=== PATIENT | male | born 1990 | race Caucasian/White ===

== ENCOUNTER 2016-12-05 11:29 | Emergency (ER) | payer SELFPAY ==
[~2016-12-05 11:29] MED LIST: CYCLOBENZAPRINE10 M1 PO; HYDROCODON-ACE1 EA16 PO
[2016-12-05] MEDS ORDERED: NO HOME MEDICATION XX (11:35)
== END 2016-12-05 12:22 ==
LOC: EDMED 11:29
PROC: 08CPXZZ Extirpation of Matter from Left Upper Eyelid, External Approach (ICD-10-PCS; principal; 2016-12-05)
DX: T15.82XA Foreign body in other and multiple parts of external eye, left eye, initial encounter (principal); X58.XXXA Exposure to other specified factors, initial encounter